=== PATIENT | male | born 1980 | race Caucasian/White ===

== ENCOUNTER 2017-08-14 23:50 | Emergency (ER) | payer OTHER, SELFPAY ==
[2017-08-15 00:01] VITALS: BP 129/79; PULSE 82; RESP 18; TEMP 36.7; O2SAT 96; BMI 31.7
--- NOTE | 2017-08-15 00:03 | ED_ITS ---
HPI - Extremity Injury (Upper) General Chief Complaint: Extremity Injury, Upper Stated Complaint: RGHT THUMB INJURY Time Seen by Provider: 08/15/17 00:02 Source: patient Mode of arrival: ambulatory Limitations: no limitations History of Present Illness HPI narrative: 36-year-old male here for evaluation of a right thumb injury. He states that yesterday he bent his thumb back and felt and heard multiple pops. He states that he has had swelling and pain since then. No prior injuries to his thumb. Has not tried anything for it. Related Data Home Medications Medication Instructions Recorded Confirmed oxycodone-acetaminophen 08/15/17 Previous Rx's Medication Instructions Recorded docusate sodium 250 mg PO QDAY #10 cap 12/28/16 ondansetron [Zofran ODT] 4 mg SUBLINGUAL Q6HP PRN #10 odt 12/28/16 oxycodone 0 mg PO Q4HP PRN #20 tab 12/28/16 Allergies Allergy/AdvReac Type Severity Reaction Status Date / Time No Known Drug Allergies Allergy Verified 08/15/17 00:15 Review of Systems Constitutional Denies chills, Denies fever(s), Denies lethargy and Denies weakness Musculoskeletal Comments: Pain to the right thumb with limited mobility secondary to the pain. Integumentary/Breasts Comments: Bruising the skin on the back of his right thumb Neurologic Denies weakness Comments: No neurologic changes to the right thumb REPLACED BY [facility] Surgical History History of back surgery (Acute) Exam Initial Vital Signs Initial Vital Signs: Vital Signs Temperature 98.1 F 08/15/17 00:01 Pulse Rate 82 08/15/17 00:01 Respiratory Rate 18 08/15/17 00:01 Blood Pressure 129/79 H 08/15/17 00:01 Pulse Oximetry 96 08/15/17 00:01 Cardio Pulses: radial pulses present Other: Capillary refill less than 2 sec Skin Other: Some discoloration of the skin on the dorsal aspect of the thumb over the metacarpophalangeal joint. Neuro Other: Sensation intact to light touch right thumb Extrem Other: Patient with tenderness to palpation over the right thumb at the MCP joint. Does have mobility at the IP joint but does limited by pain. No gross deformity. Course Orders Ordered: ED Orders 08/15/17 00:10 XR hand RT min 3V Stat Vital Signs - 8 hr 08/15/17 00:01 Temperature 98.1 F Pulse Rate 82 Respiratory Rate 18 Blood Pressure 129/79 H Pulse Oximetry 96 MDM - Extremity Injury (Upper) Imaging Data Right hand x-ray: Attestation: I personally reviewed and interpreted this imaging study as follows: My impression: No fractures, no dislocations MDM Narrative Medical decision making narrative: Patient is neurovascularly intact. My read of the x-ray shows no signs of fractures. Did place the patient denies if removable thumb spica splint for comfort. He was instructed that if in a couple days he is still having pain he needs to return to his primary doctor for a re-evaluation and possible more x-rays or consult to see Orthopedics for more extensive soft tissue injury. He has pain medication at home. He was given return precautions. He expressed understanding and agreement with plan Discharge Plan Departure Patient Disposition: Home, Self-Care Clinical Impression: Injury of right thumb Discharge Date/Time: 08/15/17 00:45 Interventions: ED Discharge Assessment Last Done: 08/15/17 00:45 Instructions: How To Perform RICE (Rest, Ice, Compress, Elevate), DI for Hand Injury Activity Restrictions/Additional Instructions: Wear the splint on a daily basis for the next week. You can remove it to take a shower however I recommend that you where it otherwise. After that you can remove the splint and move your thumb as tolerated. If pain persists you do need to follow-up with your primary doctor for further evaluation. You can take her home pain medication as directed for any discomfort. Ice here hand likely discussed. Prescriptions: No Action oxycodone 5 MG tablet PO Q4HP PRNQty: 20 RF: 0 docusate sodium 250 MG capsule 250 mg PO QDAY Qty: 10 RF: 0 ondansetron [Zofran ODT] 4 MG tablet,disintegrating 4 mg Sublingual Q6HP PRNQty: 10 RF: 0 oxycodone-acetaminophen 10-325 mg tablet RF: 0
--- NOTE | 2017-08-15 00:10 | DI.RAD.S_ITS ---
PROCEDURE: XR HAND RT MIN 3V INDICATIONS: right thumb injury TECHNIQUE: 3 views of the hand(s) acquired. COMPARISON: None. FINDINGS: Bones: No fractures or dislocations. Carpal bones are normally aligned. No suspicious bony lesions. Soft tissues: No suspicious soft tissue calcifications. IMPRESSION: No acute fractures or dislocations. Dictated by: Macario Cifuentes M.D. on 08/15/2017 at 9:06 Approved by: Macario Cifuentes M.D. on 08/15/2017 at 9:07
== END 2017-08-15 00:45 | disposition home or self-care (01) ==
PROVIDERS: Emergency Provider Emergency Medicine
DX: S69.91XA Unspecified injury of right wrist, hand and finger(s), initial encounter (principal)
CPT/HCPCS: 29280; 73130; 99283

== ENCOUNTER 2017-09-12 21:31 | Emergency (ER) | payer OTHER, SELFPAY ==
[2017-09-12 21:36] VITALS: BP 135/89; PULSE 73; RESP 20; TEMP 37.2; O2SAT 99
--- NOTE | 2017-09-12 21:39 | DI.RAD.S_ITS ---
PROCEDURE: XR FOOT RT MIN 3V INDICATIONS: 36 year-old with puncture wound. TECHNIQUE: 3 views of the foot were acquired. COMPARISON: None. FINDINGS: Bones: No fractures or dislocations. No suspicious bony lesions. Soft tissues: No tibiotalar joint effusion. Achilles tendon appears normal. No opaque foreign body. IMPRESSION: No opaque foreign body. Dictated by: Messi Hollis M.D. on 09/12/2017 at 22:09 Approved by: Messi Hollis M.D. on 09/12/2017 at 22:10
[2017-09-12] MEDS: levoFLOXacin 500 MG TABLET PO (23:17)
[2017-09-12 23:34] VITALS: BP 129/84; PULSE 65; RESP 16; TEMP 36.3; O2SAT 100
--- NOTE | 2017-09-13 04:14 | ED_ITS ---
HPI - Extremity Injury (Lower) General Chief Complaint: Extremity Injury, Lower Stated Complaint: BAMBOO SHOOT WENT THREW RT FOOT Time Seen by Provider: 09/12/17 22:00 Source: patient and family Mode of arrival: ambulatory Limitations: no limitations History of Present Illness HPI Narrative: Patient presents to the emergency department with a chief complaint of a puncture wound on the bottom of his foot after stepping on a sharp and bamboo shoe which went through his shoe and then a sock before puncturing the bottom of his foot. He bled minimally and they cleaned on scene prior to his presenting to the emergency department. He had no active bleeding and tetanus is up-to-date. He states that the piece a bamboo was fully intact and the likelihood foreign bodies essentially 0 MD complaint: foot injury Onset (ago): hour(s) Type of Injury: puncture wound Place: home Severity: mild Relieving factors: nothing Exacerbating factors: weight bearing and movement Context: direct blow Other symptoms: none Related Data Home Medications Medication Instructions Recorded Confirmed oxycodone-acetaminophen 08/15/17 Previous Rx's Medication Instructions Recorded docusate sodium 250 mg PO QDAY #10 cap 12/28/16 ondansetron [Zofran ODT] 4 mg SUBLINGUAL Q6HP PRN #10 odt 12/28/16 oxycodone 0 mg PO Q4HP PRN #20 tab 12/28/16 ciprofloxacin HCl [Cipro] 500 mg PO BID 7 Days #14 tab 09/12/17 Allergies Allergy/AdvReac Type Severity Reaction Status Date / Time No Known Drug Allergies Allergy Verified 08/15/17 00:15 Review of Systems Review of Systems All systems reviewed & are unremarkable except as noted in HPI and below Constitutional Denies chills, Denies fever(s), Denies lethargy and Denies weakness Eyes Denies change in vision, Denies eye discharge, Denies irritation and Denies loss of vision ENT Ears, Nose, Mouth, and Throat: Denies change in voice, Denies neck pain and Denies sore throat Cardiovascular Denies chest pain, Denies irregular heart rhythm, Denies lightheadedness, Denies palpitations, Denies dyspnea, Denies dyspnea on exertion and Denies orthopnea Respiratory Denies cough, Denies dyspnea, Denies dyspnea on exertion and Denies wheezing Gastrointestinal Gastrointestinal: Denies abdominal pain, Denies change in bowel habits, Denies diarrhea, Denies nausea and Denies vomiting Genitourinary Denies hematuria, Denies flank pain, Denies urinary incontinence and Denies urinary urgency Musculoskeletal Reports as per HPI and Denies neck pain Integumentary/Breasts Denies pruritus, Denies erythema, Denies rash and Denies wounds Neurologic Denies confusion, Denies loss of vision and Denies weakness Psychiatric Denies anxiety, Denies confusion, Denies depression, Denies homicidal ideation and Denies suicidal ideation Endocrine Denies palpitations Hematologic/Lymphatic Denies easy bruising Allergic/Immunologic Denies wheezing Exam Initial Vital Signs Initial Vital Signs: Vital Signs Temperature 98.9 F 09/12/17 21:36 Pulse Rate 73 09/12/17 21:36 Respiratory Rate 20 09/12/17 21:36 Blood Pressure 135/89 H 09/12/17 21:36 Pulse Oximetry 99 09/12/17 21:36 Const General: cooperative, well developed and in distress Nutritional Appearance: well nourished Orientation: alert, awake, oriented x3 and not confused [facility] Head: normocephalic and atraumatic Ears: external ears normal and TM's normal bilaterally Nose: external nose normal and No nasal discharge Face and sinus: sinuses nontender, face symmetric, no sinus tenderness and No dry mucous membranes Mouth: oral mucosae normal and moist mucous membranes Teeth and gingiva: dentition normal Throat: tonsils normal and uvula midline Neck Neck: normal visual inspection, trachea midline, No lymphadenopathy, No midline deformity and No JVD Lymphatic: No lymphedema Resp Effort & Inspection: normal respiratory effort, able to speak in complete sentences, no respiratory distress and no use of accessory muscles Auscultation: clear to auscultation bilaterally, no rales, no rhonchi and no wheezes Cardio Rate: regular rate Rhythm: regular rhythm Heart Sounds: no click, no gallops, no murmurs and no rubs Pulses: normal peripheral pulses Back/Spine/Pelvis Back: No CVA tenderness Cervical Spine: cervical ROM normal and No pain with cervical ROM Thoracic/Lumbar Spine: thoracic and lumbar spine normal to inspection Skin Trauma: puncture (Bottom of right foot) Neuro General: alert, oriented x3, gait normal and no focal motor deficits Speech: speech normal Extrem Right lower extremity: foot (0.5 cm puncture plantar surface of right foot. X- ray shows no foreign body. Palpation demonstrates no foreign body sensation. No active bleeding. Scrubbed with chlorhexidine) Course Orders Ordered: ED Orders 09/12/17 21:39 XR foot RT min 3V Stat Discontinued Medications Levofloxacin (Levaquin) 500 mg PO NOW ONE Stop: 09/12/17 22:59 Last Admin: 09/12/17 23:17 Dose: 500 mg Vital Signs - 8 hr 09/12/17 21:36 09/12/17 23:34 Temperature 98.9 F 97.4 F L Pulse Rate 73 65 Respiratory Rate 20 16 Blood Pressure 135/89 H Blood Pressure [Left Arm] 129/84 H Pulse Oximetry 99 100 MDM - Extremity Injury (Lower) Imaging Data X-ray foot: Attestation: I personally reviewed and interpreted this imaging study as follows: My impression: No acute process that half MDM Narrative Medical decision making narrative: Wound clean and scrubbed with chlorhexidine. No repair needed. Extensive discussion regarding soaks with Epsom salts, and that even given cleaning, and use of antibiotics that this puncture wound runs the chance of infection and to watch for increased swelling, redness, pain or discharge Discharge Plan Departure Patient Disposition: Home, Self-Care Clinical Impression: Puncture wound of foot Discharge Date/Time: 09/12/17 23:42 Interventions: ED Discharge Assessment Last Done: 09/12/17 23:41 Instructions: DI for Puncture Wound Activity Restrictions/Additional Instructions: *You have been diagnosed with [ puncture wound left foot ] *What to do: *Take medications as directed *Follow up with your primary care provider in 2-3 days *Return to ER if you should have any new, worsening or concerning symptoms such as increasing pain, redness, swelling or drainage Prescriptions: New ciprofloxacin HCl [Cipro] 500 mg tablet 500 mg PO BID 7 Days Qty: 14 RF: 0 No Action oxycodone 5 MG tablet PO Q4HP PRNQty: 20 RF: 0 docusate sodium 250 MG capsule 250 mg PO QDAY Qty: 10 RF: 0 ondansetron [Zofran ODT] 4 MG tablet,disintegrating 4 mg Sublingual Q6HP PRNQty: 10 RF: 0 oxycodone-acetaminophen 10-325 mg tablet RF: 0
== END 2017-09-12 23:42 | disposition home or self-care (01) ==
PROVIDERS: Emergency Provider Emergency Medicine
DX: S91.331A Puncture wound without foreign body, right foot, initial encounter (principal); W26.8XXA Contact with other sharp object(s), not elsewhere classified, initial encounter
CPT/HCPCS: 73630; 99282; 99283

== ENCOUNTER → 2017-10-20 14:09 | Outpatient (CLI) | payer OTHER, SELFPAY ==
--- NOTE | 2017-10-20 | DI.RAD.S_ITS ---
PROCEDURE: XR LUMBAR SPINE 2-3V INDICATIONS: S/P LUMBAR FUSION TECHNIQUE: 3 views of the lumbar spine were acquired. COMPARISON: Located Within [facility], CT, LUMBAR OR SACRAL SPINE WO CONT, 01/30/2016, 0:58. FINDINGS: Bones: 5 [id number] vertebrae are present. Postoperative changes are now evident at the L5-S1 level, posterior fixation with trans-peduncular screws and vertical connecting rods L5-S1. Surgical clip within the posterior disc space and anterior fixation and clips also present at L5-S1. No vertebral body compression fractures. No suspicious bony lesions. Soft tissues: Overlying bowel gas pattern is normal. No suspicious soft tissue calcifications. IMPRESSION: 1. No acute bony abnormality. 2. Grade 1 anterolisthesis L5 on S1 appears unchanged, anterior and posterior fixation devices now present. Dictated by: Naresh Ordoñez M.D. on 10/20/2017 at 14:54 Approved by: Naresh Ordoñez M.D. on 10/20/2017 at 14:58
== END ==
PROVIDERS: Visit Provider Physician Assistant Surgical
DX: M43.16 Spondylolisthesis, lumbar region (principal); Z98.1 Arthrodesis status
CPT/HCPCS: 72100

== ENCOUNTER → 2018-03-12 12:17 | Outpatient (CLI) | payer OTHER, SELFPAY | PROVIDERS: Visit Provider Neurological Surgery | DX: M54.9 Dorsalgia, unspecified (principal); Z98.1 Arthrodesis status; M43.16 Spondylolisthesis, lumbar region; Z01.812 Encounter for preprocedural laboratory examination | CPT/HCPCS: 36415; 80323 ==

== ENCOUNTER → 2018-04-07 06:55 | Outpatient (CLI) | payer OTHER, SELFPAY ==
--- NOTE | 2018-04-07 | DI.MRI.S_ITS ---
PROCEDURE: MR CERVICAL SPINE WO CON INDICATIONS: MYELOPATHY TECHNIQUE: Noncontrast sagittal T1 spin echo and T2 fast spin echo, sagittal STIR, foraminal oblique sagittal T2 fast spin echo, and axial gradient echo or T2 fast spin echo through the cervical spine. COMPARISON: None. FINDINGS: Image quality: Excellent. Alignment and Curvature: There is normal bony alignment. Bone Marrow: Marrow demonstrates normal overall signal. Mild metal artifact from an anterior fusion plate C6-7. No sign of device loosening or disruption. Spinal Cord: Visualized spinal cord has normal size and signal. No cerebellar tonsillar herniation. Paraspinous Soft Tissues: No paravertebral masses. Prevertebral soft tissues are normal in thickness. C2-C3: Normal appearance. C3-C4: Normal appearance. C4-C5: Normal appearance. C5-C6: Mild to moderate degenerative disc disease above the level of C6-7 fusion, with only a slight posterior disc bulge. No nerve root impingement, no significant spinal or foraminal stenosis is found.. C6-C7: Normal appearance. C7-T1: Normal appearance. IMPRESSION: Mild degenerative to moderate degenerative disc disease with a slight posterior disc bulge at C5-6, above the level of previously documented C6-7 anterior fusion plate. No intrinsic lesion within the cervical cord is present. There is no suspicion for nerve root impingement. Dictated by: Alli Langley M.D. on 04/07/2018 at 9:01 Approved by: Alli Langley M.D. on 04/07/2018 at 9:02
--- NOTE | 2018-04-07 | DI.MRI.S_ITS ---
PROCEDURE: MR THORACIC SPINE WO CON INDICATIONS: MYELOPATHY TECHNIQUE: Noncontrast sagittal T1 spine echo and T2 fast spin echo, sagittal STIR, axial T1 and T2 fast spin echo through the thoracic spine. COMPARISON: [facility], , CERVICAL SPINE 2 OR 3 VIEWS, 12/18/2010, 13:29. FINDINGS: Image quality: Excellent. Alignment and Curvature: There is normal bony alignment. Bone Marrow: Marrow is of normal overall signal. No acute vertebral body compression fractures. There is a small degree of metal artifact at C6-C7 from an anterior fusion plate and transverse anterior vertebral body screws. Spinal Cord: Visualized spinal cord is normal in size and signal. Paraspinous Soft Tissues: No paravertebral masses. Miscellaneous: On axial images, central canal and foramina appear widely patent at all scanned levels. IMPRESSION: Anterior fusion plate C6-7. Normal appearing thoracic spine and intervertebral disc material. No sign of intrinsic lesion involving the visualized cervical cord or thoracic cord and visualized conus medullaris. Source of current symptoms is not seen. Dictated by: Alli Langley M.D. on 04/07/2018 at 8:58 Approved by: Alli Langley M.D. on 04/07/2018 at 9:01
== END ==
PROVIDERS: PCP Preventive Medicine Occupational Medicine; Visit Provider Neurological Surgery
DX: M50.022 Cervical disc disorder at C5-C6 level with myelopathy (principal); Z98.1 Arthrodesis status
CPT/HCPCS: 72141; 72146

== ENCOUNTER 2018-10-27 22:37 | Emergency (ER) | payer OTHER, SELFPAY ==
[2018-10-27 22:46] VITALS: BP 172/99; PULSE 79; RESP 20; TEMP 36.3; O2SAT 98; BMI 32.1
--- NOTE | 2018-10-27 23:01 | DI.CT.S_ITS ---
PROCEDURE: CT CERVICAL SPINE WO CON INDICATIONS: severe neck pain,history of non traumatic c6 and c7 fusion TECHNIQUE: Noncontrast 3 mm thick sections acquired from the skull base to the T4 level. Sagittal and coronal reformats were then constructed. For radiation dose reduction, the following was used: automated exposure control, adjustment of mA and/or kV according to patient size. COMPARISON: [facility], CERVICAL SPINE 2 OR 3 VIEWS, 12/18/2010, 13:29. FINDINGS: Image quality: Excellent. Bones: C6-C7 ACDF. No fractures or dislocations. Visualized superior ribs are intact. Spine degenerative disc disease and facet arthropathy. Soft tissues: Prevertebral soft tissues are normal in thickness. No paravertebral hematomas. No apical pneumothoraces. IMPRESSION: No fracture. No acute osseous lesion. If symptoms and/or clinical suspicion for pathology persists, evaluation with MRI may be helpful for further assessment. Dictated by: Sophy Reid MD, PhD on 10/28/2018 at 8:25 Approved by: Sophy Reid MD, PhD on 10/28/2018 at 8:28
[2018-10-28 00:32] VITALS: BP 159/114; PULSE 76; RESP 16; O2SAT 96
--- NOTE | 2018-10-28 02:07 | ED_ITS ---
HPI - Neck Pain/Injury General Chief Complaint: Neck Pain/Injury Stated Complaint: neck pain,, headache Time Seen by Provider: 10/28/18 00:27 Source: patient and family Mode of arrival: ambulatory Limitations: no limitations History of Present Illness HPI Narrative: Patient presents the emergency department complaining of neck pain, mainly in the superior aspect of the neck, to the left of the spine. Patient states this has been going on for several days, and did not have any particular trigger. He denies any new numbness or tingling in his arms or legs, though he does have chronic sensory deficits in his bilateral upper extremities after a C6-7 surgery. Patient denies any weakness in his extremities. He states it feels like when he had to have this C6-7 surgery. No recent injuries. 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 No other complaints at this time. No fevers. No chest pain or shortness of breath. No abdominal pain. No nausea or vomiting. No dysuria. No bowel or bladder incontinence. Related Data Home Medications Medication Instructions Recorded Confirmed oxycodone-acetaminophen 08/15/17 Previous Rx's Medication Instructions Recorded docusate sodium 250 mg PO QDAY #10 cap 12/28/16 ondansetron [Zofran ODT] 4 mg SUBLINGUAL Q6HP PRN #10 odt 12/28/16 oxycodone 0 mg PO Q4HP PRN #20 tab 12/28/16 Allergies Allergy/AdvReac Type Severity Reaction Status Date / Time No Known Drug Allergies Allergy Verified 08/15/17 00:15 Review of Systems Constitutional Denies chills, Denies fever(s), Denies lethargy and Denies weakness Eyes Denies change in vision, Denies eye discharge, Denies irritation and Denies loss of vision ENT Ears, Nose, Mouth, and Throat: Denies change in voice, Reports neck pain and Denies sore throat Cardiovascular Denies chest pain, Denies irregular heart rhythm, Denies lightheadedness, Denies palpitations, Denies dyspnea, Denies dyspnea on exertion and Denies orthopnea Respiratory Denies cough, Denies dyspnea, Denies dyspnea on exertion and Denies wheezing Gastrointestinal Gastrointestinal: Denies abdominal pain, Denies change in bowel habits, Denies diarrhea, Denies nausea and Denies vomiting Genitourinary Denies hematuria, Denies flank pain, Denies urinary incontinence and Denies urinary urgency Musculoskeletal Reports neck pain Integumentary/Breasts Denies pruritus, Denies erythema, Denies rash and Denies wounds Neurologic Denies confusion, Denies loss of vision and Denies weakness Psychiatric Denies anxiety, Denies confusion, Denies depression, Denies homicidal ideation and Denies suicidal ideation Endocrine Denies palpitations Hematologic/Lymphatic Denies easy bruising Allergic/Immunologic Denies wheezing [facility] Medical History Palpitations (Acute) Laceration of nose (Acute) Left maxillary sinusitis (Acute) Acute exacerbation of chronic low back pain (Acute) Low back pain (Acute) Supraumbilical hernia (Acute) Umbilical hernia (Acute) Abdominal pain (Acute) Degenerative joint disease of cervical and lumbar spine (Acute) Surgical History History of back surgery (Acute) Social History Smoking Status: Current some day smoker Social History Smoking Status: Current some day smoker Exam Initial Vital Signs Initial Vital Signs: Vital Signs Temperature 97.4 F L 10/27/18 22:46 Pulse Rate 79 10/27/18 22:46 Respiratory Rate 20 10/27/18 22:46 Blood Pressure 172/99 H 10/27/18 22:46 Pulse Oximetry 98 10/27/18 22:46 Const General: cooperative and well developed Nutritional Appearance: well nourished Orientation: alert, awake, oriented x3 and not confused [facility] [place] Head: normocephalic and atraumatic Ears: external ears normal and TM's normal bilaterally Nose: external nose normal and No nasal discharge Face and sinus: sinuses nontender, face symmetric, no sinus tenderness and No dry mucous membranes Mouth: oral mucosae normal and moist mucous membranes Teeth and gingiva: dentition normal Throat: tonsils normal and uvula midline Eyes General: appearance normal, both eyes and all related structures Eyelids: eyelids normal Conjunctivae: conjunctivae normal Sclera: sclerae normal Pupils: PERRL EOM: EOM intact bilaterally Neck Neck: normal visual inspection, trachea midline, No lymphadenopathy, No midline deformity and No JVD Lymphatic: No lymphedema Other: Patient has decreased range of motion of his neck, secondary to pain. There is no tenderness over the spine itself; no step-off. There is moderate tenderness over the left superior cervical paraspinal musculature, immediately adjacent to the spine. The Chest Chest: normal inspection of the chest Resp Effort & Inspection: normal respiratory effort, able to speak in complete sentences, no respiratory distress and no use of accessory muscles Auscultation: clear to auscultation bilaterally, no rales, no rhonchi and no wheezes Cardio Rate: regular rate Rhythm: regular rhythm Heart Sounds: no click, no gallops, no murmurs and no rubs Pulses: normal peripheral pulses GI Inspection: non-distended Palpation: soft, no hepatosplenomegaly, No guarding, No pulsatile mass and No tender Auscultation: normal bowel sounds Back/Spine/Pelvis Back: No CVA tenderness Cervical Spine: cervical ROM normal and No pain with cervical ROM Thoracic/Lumbar Spine: thoracic and lumbar spine normal to inspection Skin General: no rashes or lesions noted, No jaundice and No petechiae Neuro General: alert, oriented x3, gait normal and no focal motor deficits Speech: speech normal Extrem General: full ROM, no clubbing, cyanosis or edema, no pedal edema and no calf tenderness Psych Appearance: well kempt Mental Status: mental status grossly normal Attitude: cooperative Thought Content: normal and suicidality Judgment: judgment good Course Course Narrative: Patient declined symptomatic treatment in the emergency depart ment. CT of his neck reveals degenerative disease at C3 and C4, but no other significant abnormalities of an acute or concerning nature. I discussed the findings at length, with the patient and his , as well as the need for him to follow up with his spinal surgeon and discuss whether a repeat MRI should be done and what patient's options are. We have discussed home management of symptoms, as well as the usual indications for return. Orders Ordered: ED Orders 10/27/18 23:01 CT cervical spine wo con Stat Vital Signs - 8 hr 10/27/18 22:46 10/28/18 00:32 Temperature 97.4 F L Pulse Rate 79 76 Respiratory Rate 20 16 Blood Pressure 172/99 H Blood Pressure [Right Arm] 159/114 H Pulse Oximetry 98 96 MDM - Neck Pain/Injury Medical Records Attestation: I reviewed the patient's medical records. Discharge Plan Departure Patient Disposition: Home Clinical Impression: Degenerative joint disease of cervical and lumbar spine Discharge Date/Time: 10/28/18 02:09 Interventions: ED Discharge Assessment Last Done: 10/28/18 02:09 Instructions: DI for Neck Pain Activity Restrictions/Additional Instructions: Your CT scan shows degenerative disease at the C3-C4 level. This is very likely the cause of your pain. However, given your history of spinal issues, you should call your spine specialists office 1st thing this morning to schedule a follow-up appointment and discuss MRI. You may take your home pain medications, as needed. If you began to develop worsening numbness or if you develop weakness in any of your arms or legs, you should be re-evaluated immediately. Prescriptions: No Action oxycodone 5 MG tablet PO Q4HP PRNQty: 20 RF: 0 docusate sodium 250 MG capsule 250 mg PO QDAY Qty: 10 RF: 0 ondansetron [Zofran ODT] 4 MG tablet,disintegrating 4 mg Sublingual Q6HP PRNQty: 10 RF: 0 oxycodone-acetaminophen 10-325 mg tablet RF: 0 Referrals: Mirlande Charles MD [Primary Care Provider] -
[2018-10-28 02:09] VITALS: BP 168/113; PULSE 68; RESP 22; TEMP 36.3; O2SAT 98
== END 2018-10-28 02:09 | disposition home or self-care (01) ==
PROVIDERS: Emergency Provider Emergency Medicine; PCP Preventive Medicine Occupational Medicine
DX: M50.31 Other cervical disc degeneration, high cervical region (principal)
CPT/HCPCS: 72125; 99282; 99283

== ENCOUNTER 2018-12-14 13:37 | Emergency (ER) | payer OTHER, SELFPAY ==
[2018-12-14 13:57] VITALS: BP 145/95; PULSE 83; RESP 14; TEMP 36.6; O2SAT 99
[2018-12-14 14:05] VITALS: BP 157/87; PULSE 79; RESP 17; O2SAT 94
[2018-12-14 14:18] LABS: Add Manual Diff / Slide Review NO; Basophils Absolute Auto 100 /uL (0-100); Basophils Percent Auto 0.7 % (0-2); Eosinophils Absolute Auto 200 /uL (0-450); Eosinophils Percent Auto 1.8 % (2-4); Hematocrit 45.1 % (41-53); Hemoglobin 15.4 g/dL (13.5-17.5); Lymphocytes Absolute Auto 2800 /uL (1100-4500); Lymphocytes Percent Auto 24.4 % (25-40); Mean Corpuscular HGB Conc 34.1 % (30-36); Mean Corpuscular Hemoglobin 31.3 PG (26-34); Mean Corpuscular Volume 91.7 fL (80-100); Monocytes Absolute Auto 800 /uL (0-900); Neutrophils Absolute Auto 7600 /uL (1500-7000); Neutrophils Percent Auto 66.1 % (50-75); Platelet Count 271 X10^3/uL (150-400); Red Blood Cell Count 4.92 X10^6/uL (4.5-5.9); Red Cell Distribution Width 13.1 % (11.6-14.8); White Blood Cell Count 11.4 X10^3/uL (4.5-11.0)
[2018-12-14 14:27] LABS: Alanine Aminotransferase 46 IU/L (21-72); Albumin 4.6 g/dL (3.5-5.0); Albumin Globulin Ratio 1.4 (1.0-2.8); Alkaline Phosphatase 89 U/L (38-126); Aspartate Aminotransferase 32 IU/L (17-59); BUN Creatinine Ratio 16.3 (6-22); Bilirubin Total 0.4 mg/dL (0.2-1.3); Blood Urea Nitrogen 13 mg/dL (9-20); Calcium 9.7 mg/dL (8.4-10.2); Carbon Dioxide 29 mmol/L (22-32); Chloride 102 mmol/L (98-107); Creatine Kinase 92 U/L (55-170); Estimated Glomerular Filt Rate > 60.0 mL/min (>60); Globulin 3.2 g/dL (1.7-4.1); Glucose 116 mg/dL (70-100); HEMOLYSIS 31 (0-50); Sodium 138 mmol/L (137-145); Total Protein 7.8 g/dL (6.3-8.2)
[2018-12-14 14:39] LABS: Troponin I < 0.012 ng/mL (0.01-0.034)
--- NOTE | 2018-12-14 14:41 | ED_ITS ---
HPI - Chest Pain General Chief Complaint: Chest Pain Stated Complaint: chest pain,left arm numb,dizzy Time Seen by Provider: 12/14/18 15:00 Source: patient and family () Mode of arrival: Ambulatory Limitations: no limitations History of Present Illness HPI narrative: This is a 37-year-old male comes to the emergency department with complaint of left chest discomfort that has been constant for the last several days. Patient states that he has felt dizzy and sometimes short of breath. He also complains of his left shoulder and arm being numb intermittently. He initially states there is no pain but then states there is some pain in the left arm. Patient states he has been told his blood pressure is elevated but never started on medications, he has been told his cholesterol is elevated but does not take medication. He denies any history of diabetes. He does with pain management and takes oxycodone daily but denies any other medications regularly. He has had a C6 through 7 fusion as well as known CD4 degenerative joint disease and back surgery on his low back as well. Patient has also had hernia repair and shoulder surgery. He denies any fevers, no chills. He states he has had a cough with sometimes productive clear sputum. Denies any nausea or vomiting except for 2 days ago. Denies any issues with bowel movements or urination. Denies any swelling in his extremities. He denies any exacerbating or alleviating factors. Patient does have a history significant for his mom dying cardiac issue the age of 56 that her heart exploded, by description may have been an PA. Father of leukemia when patient was 2 months old. He has siblings and is unaware of any medical problems. Related Data Home Medications Medication Instructions Recorded Confirmed oxycodone 10 mg PO Q4-6H PRN MDD 3 tabs 12/14/18 Allergies Allergy/AdvReac Type Severity Reaction Status Date / Time No Known Drug Allergies Allergy Verified 08/15/17 00:15 Review of Systems Review of Systems ROS Unobtainable: All systems reviewed & are unremarkable except as noted in HPI and below Constitutional Constitutional: Denies chills, Reports fatigue, Denies fever(s), Denies lethargy and Denies weakness ENT Ears, Nose, Mouth, and Throat: Reports neck pain (chronic) Cardiovascular Cardiovascular: Reports chest pain, Denies diaphoresis, Denies syncope, Denies rapid heart rate, Denies edema, Denies irregular heart rhythm, Denies lightheadedness, Denies palpitations, Reports dyspnea and Denies dyspnea on exertion Respiratory Respiratory: Denies change in phlegm color, Denies chest congestion, Reports cough, Reports dyspnea, Denies dyspnea on exertion, Denies stridor and Denies wheezing Gastrointestinal Gastrointestinal: Denies abdominal pain, Denies melena, Denies hematochezia, Denies change in bowel habits, Denies constipation, Denies diarrhea, Denies nausea and Denies vomiting Genitourinary Genitourinary: Denies hematuria, Denies dysuria, Denies flank pain, Denies urinary frequency, Denies urinary incontinence and Denies urinary urgency Musculoskeletal Musculoskeletal: Reports back pain (chronic), Denies limited range of motion, Reports neck pain (chronic), Reports numbness (left arm, intermittent. Not always related to chest pain symptoms) and Denies tingling Integumentary/Breasts Skin/Breast: Denies rash Neurologic Neurologic: Denies syncope, Denies focal weakness, Reports numbness (left arm, intermittent. Not always related to chest pain symptoms), Denies tingling and Denies weakness Endocrine Endocrine: Reports fatigue and Denies palpitations Allergic/Immunologic Allergic/Immunologic: Denies wheezing [facility] Medical History Abdominal pain (Acute) Acute exacerbation of chronic low back pain (Acute) Degenerative joint disease of cervical and lumbar spine (Inactive) Laceration of nose (Acute) Left maxillary sinusitis (Acute) Low back pain (Acute) Palpitations (Acute) Supraumbilical hernia (Acute) Umbilical hernia (Acute) Surgical History History of back surgery (Acute) Social History Smoking Status: Current some day smoker Family History (Updated 12/14/18 @ 15:24 by Mikayla Boss DO) Mother No problems noted. Father Leukemia Social History (Updated 12/14/18 @ 15:24 by Mikayla Boss DO) Smoking Status: Current some day smoker substance use type: does not use Exam Narrative Exam Narrative: GENERAL: Alert and oriented x three, moderately obese male in mild distress. HEENT: Head normocephalic, atraumatic, EOMI, pupils reactive, face symmetric, moist mucous membranes NECK: Supple, full range of motion, patient has mild cervical tenderness on exam. CARDIOVASCULAR: Regular rate and rhythm without murmurs, rubs or gallops. Nonreproducible chest pain RESPIRATORY: Breath sounds equal bilaterally, no wheezes rales or rhonchi. ABDOMEN: Soft, nontender. Normoactive bowel sounds all 4 quadrants. No guarding or rebound, rigidity, no mass : No CVA tenderness EXTREMITIES: Normal range of motion, no clubbing or edema. Patient does have some hypermobility of his left shoulder which he demonstrates multiple times. He has equal muscle strength in bilateral upper extremities. Fulfillment Representative is equal bilaterally. 2+ pulses bilaterally. Reflexes are equal in bilateral upper extremities. Neurovascularly intact NEUROLOGICAL: Cranial nerves II through XII grossly intact. Moving all extrem ities SKIN: Warm, dry, no petechiae, no rashes or lesions. Initial Vital Signs Initial Vital Signs: Vital Signs Temperature 97.8 F 12/14/18 13:57 Pulse Rate 83 12/14/18 13:57 Respiratory Rate 14 12/14/18 13:57 Blood Pressure 145/95 H 12/14/18 13:57 Pulse Oximetry 99 12/14/18 13:57 Scores HEART Score Heart Score history: Moderately Suspicious Heart Score EKG: Normal Heart Score Age: < 45 years old Heart Score risk factors: 1-2 risk factors Heart Score troponin: < or = to normal limit Heart Score Total: 2 Course Orders Ordered: ED Orders 12/14/18 13:08 EKG-12 Lead Stat 12/14/18 14:00 Complete Blood Count AUTO DIFF Stat Comprehensive Metabolic Panel Stat Lipase Stat Troponin & CK Cardiac Panel Stat 12/14/18 14:41 Chest [XR chest 1V] Stat Vital Signs Vital signs: Vital Signs - 8 hr 12/14/18 13:57 12/14/18 14:05 12/14/18 15:10 Temperature 97.8 F Pulse Rate 83 79 68 Respiratory Rate 14 17 18 Blood Pressure 145/95 H Blood Pressure [Left Arm] 157/87 H 149/88 H Pulse Oximetry 99 94 96 MDM - Chest Pain Lab Data Attestation: I reviewed the patient's lab results. Result diagrams: 12/14/18 14:00 12/14/18 14:00 Labs: Lab Results 12/14/18 12/14/18 12/14/18 Range/Units 14:00 14:00 14:00 WBC 11.4 H (4.5-11.0) X10^3/uL RBC 4.92 (4.5-5.9) X10^6/uL Hgb 15.4 (13.5-17.5) g/dL Hct 45.1 (41-53) % MCV 91.7 (80-100) fL MCH 31.3 (26-34) PG MCHC 34.1 (30-36) % RDW 13.1 (11.6-14.8) % Plt Count 271 (150-400) X10^3/uL Neut % (Auto) 66.1 (50-75) % Lymph % (Auto) 24.4 L (25-40) % [place] % (Auto) 7.0 (3-14) % Eos % (Auto) 1.8 L (2-4) % Baso % (Auto) 0.7 (0-2) % Neut # (Auto) 7600 H (1499-5478) /uL Lymph # (Auto) 2800 (8156-8841) /uL [place] # (Auto) 800 (0-900) /uL Eos # (Auto) 200 (0-450) /uL Baso # (Auto) 100 (0-100) /uL Sodium 138 (137-145) mmol/L Potassium 4.0 (3.4-5.1) mmol/L Chloride 102 (98-107) mmol/L Carbon Dioxide 29 (22-32) mmol/L BUN 13 (9-20) mg/dL Creatinine 0.80 (0.66-1.25) mg/dL Estimated GFR > 60.0 (>60) mL/min BUN/Creatinine Ratio 16.3 (6-22) Glucose 116 H (70-100) mg/dL Calcium 9.7 (8.4-10.2) mg/dL Total Bilirubin 0.4 (0.2-1.3) mg/dL AST 32 (17-59) IU/L ALT 46 (21-72) IU/L Alkaline Phosphatase 89 (38-126) U/L Total Creatine Kinase 92 (55-170) U/L CK-MB (CK-2) TNP CK-MB (CK-2) Rel Index TNP Troponin I < 0.012 (0.01-0.034) ng/mL Total Protein 7.8 (6.3-8.2) g/dL Albumin 4.6 (3.5-5.0) g/dL Globulin 3.2 (1.7-4.1) g/dL Albumin/Globulin Ratio 1.4 (1.0-2.8) Lipase 59 (23-300) U/L Imaging Data Chest x-ray: Radiologist's impression: [address] [address] XRay Report Signed Patient: Alli Grewal MMR#: [id number] : 1980Acct:[id number] Age/Sex: 37 / MDate of Service: 12/14/18 Loc: ED Accession Number: [id number] Procedure: XR chest 1V Ordering Provider: Mikayla Boss D.O. PROCEDURE: XR CHEST 1V INDICATIONS: chest pain TECHNIQUE: One view of the chest was acquired. COMPARISON: [facility], , CHEST 2 VIEW, 02/26/2015, 19:05. FINDINGS: Surgical changes and devices: None. Lungs and pleura: Lungs are clear. No pleural effusions or pneumothorax. Mediastinum: Mediastinal contours appear normal. Heart size is normal. Bones and chest wall: No suspicious bony lesions. Overlying soft tissues appear unremarkable. IMPRESSION: No evidence acute pulmonary process. Dictated by: Jesse Stein M.D. on 12/14/2018 at 15:04 Approved by: Jesse Stein M.D. on 12/14/2018 at 15:04 ECG Data Attestation: I personally reviewed and interpreted this ECG as follows: Prior ECG tracings: available for review Interpretation: Sinus rhythm the rate 84 WA 152 QRS of 95 and QTC of 391. No ST changes appreciated. 04/16/17. [place] Narrative Medical decision making narrative: Patient comes in with complaint of chest pain and shortness of breath which has been greater than 12 hours with a negative EKG and troponin. He also is complaining of numbness in his left upper extremity but denies any weakness. He has history significant for cervical fusion and no degenerative disease just above his fusion. I suspect that the numbness in his arm is related to this. He does chronically have neck and low back pain and takes oxycodone regularly for it through pain management. Patient also is complaining of cough, chest x-ray does not show any pneumonia he does not been febrile or had any clear changes on exam that are suspicious for acute infection but I would suspect that some may be related to his tobacco use. He has family history of cardiac issues and states that he has been told he has hypertension and dyslipidemia but has never been told to take medication. Discussed that he should have follow-up and likely stress testing based on his family history. Discharge Plan Departure Patient Disposition: Home Clinical Impression: Atypical chest pain Discharge Date/Time: 12/14/18 15:42 Instructions: DI for Atypical Chest Pain Activity Restrictions/Additional Instructions: Follow up with primary care for recheck and discussion about stress testing. If you prefer you can contact our health resources coordinator for a primary care physician outside the [place] [phone] is the contact number. I would also discuss the decreased sensation with your orthopedic or spinal surgeon if you prefer referral is given here for local orthopedic surgery. I would recommend continuing your home medications as prescribed. Return to the emergency department for fevers got 100.4 F, passing out, new changes to her chest pain or shortness of breath, coughing up blood, persistent vomiting, black or bloody stools or other new or concerning symptoms. Prescriptions: No Action oxycodone 20 mg tablet 10 mg PO Q4-6H MDD 3 tabs PRN (Reason: pain) RF: 0 Referrals: Mirlande Charles MD [Primary Care Provider] - Sherri Ritter MD [Physician] -
[2018-12-14 15:10] VITALS: BP 149/88; PULSE 68; RESP 18; O2SAT 96
[2018-12-14 15:11] LABS: Lipase 59 U/L (23-300)
== END 2018-12-14 15:42 | disposition home or self-care (01) ==
PROVIDERS: Emergency Provider Emergency Medicine; PCP Preventive Medicine Occupational Medicine
DX: R07.89 Other chest pain (principal); R06.02 Shortness of breath; R42 Dizziness and giddiness
CPT/HCPCS: 36415; 71045; 80053; 82550; 83690; 84484; 85025; 93005; 93041; 99283; 99285

== ENCOUNTER → 2019-03-31 13:36 | Outpatient (CLI) | payer OTHER, SELFPAY ==
--- NOTE | 2019-03-31 | DI.RAD.S_ITS ---
PROCEDURE: FL SHOULDER INJECTION MR/CT LT INDICATIONS: LEFT SHOULDER PAIN TECHNIQUE: The indications, alternatives, benefits, risks, and complications of the procedure were explained to the patient. Written informed consent was obtained and placed in the chart. The shoulder was examined fluoroscopically and a site for needle placement chosen for entry into the glenohumeral joint from an anterior approach. The skin was prepped and draped in a sterile fashion, and 1% lidocaine infiltrated from skin down to joint capsule. A spinal needle was inserted into the glenohumeral joint, and a small amount of iodinated contrast media injected to confirm intra-articular placement of the needle tip. This was followed by approximately 12 mL dilute solution of a gadolinium containing MR contrast agent. The needle was removed and a dressing was applied. The patient was given postprocedural instructions and sent to the MR suite for MR imaging. FINDINGS: A single fluoroscopic spot image demonstrates intra-articular location of injected iodinated contrast. IMPRESSION: Successful fluoroscopically guided administration of dilute Gadolinium solution into the shoulder joint for MR arthrogram. Dictated by: Messi Hollis M.D. on 03/31/2019 at 14:56 Approved by: Messi Hollis M.D. on 03/31/2019 at 14:56
--- NOTE | 2019-03-31 14:05 | DI.MRI.S_ITS ---
PROCEDURE: MR SHOULDER LT W CON INDICATIONS: LEFT SHOULDER PAIN TECHNIQUE: After the administration of 12 mL of dilute intra-articular Gadolinium contrast, oblique coronal T1 and T2 spin echo with fat saturation, oblique sagittal T1 spin echo with and without fat saturation, oblique sagittal T2 fast spin echo with fat saturation, axial T1 spin echo with fat saturation through the shoulder. COMPARISON: [facility] [place], CR, XR SHOULDER 2+ VIEWS LEFT, 03/24/2019, 10:48. Former[facility], MR, UP EXT WITH, 01/15/2010, 14:26. Former[facility], RF, FL SHOULDER INJECTION MR/CT LT, 03/31/2019, 13:54. FINDINGS: Image quality: Excellent. Rotator cuff: There is low-grade partial thickness tear of the supraspinatus and infraspinatus tendons. The subscapularis tendon appears intact throughout. No rotator cuff muscle atrophy on sagittal images. Bones and bursae: No bone marrow contusions or fractures. Cystic changes noted in the posterior aspect of the humeral head. No acromioclavicular joint degeneration. The acromion demonstrates conventional anatomy, without an os acromiale. Capsule and soft tissues: There is fraying of the anterior superior labrum near the biceps anchor. The glenohumeral ligaments appear intact. The long head of the biceps tendon demonstrates normal location and morphology. The rotator interval appears normal, without fibrosis. The coracohumeral ligament is of normal thickness. No intra-articular bodies. IMPRESSION: 1. Low-grade partial thickness tear of the supraspinatus and infraspinatus tendons. 2. Fraying of the anterior superior labrum near the biceps anchor suspicious for tear. 3. Mild coma clavicular joint degeneration. 4. Cystic changes in the posterior aspect of the humeral head. Dictated by: Messi Hollis M.D. on 03/31/2019 at 14:58 Approved by: Messi Hollis M.D. on 03/31/2019 at 16:39
== END ==
PROVIDERS: Visit Provider Orthopaedic Surgery
DX: M25.512 Pain in left shoulder (principal); M75.112 Incomplete rotator cuff tear or rupture of left shoulder, not specified as traumatic
CPT/HCPCS: 23350; 73222; 77002

== ENCOUNTER 2019-06-10 06:32 | Emergency (ER) | payer OTHER, SELFPAY ==
[2019-06-10 06:40] VITALS: BP 181/102; PULSE 86; RESP 15; TEMP 36.2; O2SAT 94; BMI 32.1
--- NOTE | 2019-06-10 06:50 | DI.US.S_ITS ---
PROCEDURE: US SCROTUM INDICATIONS: right testicular pain, lump upper and lower TECHNIQUE: Real-time scanning was performed of the scrotum and testicles, with image documentation. Color and pulse Doppler interrogation was performed of both testicles. COMPARISON: None. FINDINGS: Right: Testicle is normal in size at 5.2 x 2.7 x 3 cm, and homogenous in echotexture. Right epididymis is slightly enlarged measures 2.1 cm in thickness and is heterogeneously in echotexture. Epididymal head cyst is seen measures 1.4 x 1.4 x 1.5 cm in size. Increased epididymal parenchymal vascularity is also noted. No hydrocele or varicoceles. Overlying scrotal skin is normal in thickness. Left: Testicle is normal in size at 5 x 2.7 x 3 cm, and homogeneous in echotexture. Epididymis is normal in overall size and morphology. No hydrocele or varicoceles. Overlying scrotal skin is normal in thickness. Doppler: Color and pulse Doppler demonstrate normal and symmetric arterial flow in both testicles. IMPRESSION: 1. Finding is consistent with right epididymitis. Right epididymal head cyst is also seen. 2. Normal appearing left epididymis and bilateral testes. No evidence of testicular torsion. Dictated by: Mac Mendez M.D. on 06/10/2019 at 8:10 Approved by: Mac Mendez M.D. on 06/10/2019 at 8:15
--- NOTE | 2019-06-10 06:51 | ED_ITS ---
HPI - Male Genitourinary General Chief complaint: Urogenital-Male Stated complaint: right testicle has lumps,swelling,painful Time Seen by Provider: 06/10/19 06:38 Source: patient Mode of arrival: Ambulatory Limitations: no limitations History of Present Illness HPI Narrative: This is a 38-year-old who comes in with complaint of right testicular pain he has states it feels swollen and he noted lumps in the upper a nd lower testicle on the right. He states the lump on the upper testicles been there a long time he noticed the lower 1 in the last day or so. He states the lumps have been tender for couple days. He states that sometimes his testicle is ?twisted? but states that he takes care of it at home. He has never had a torsion diagnosed that he is aware of. States pain does sometimes radiate up into the lower abdomen, he states it has been uncomfortable when he tries to empty his bladder. He has not had dysuria, urgency or frequency, no hematuria. He does not have fevers. No nausea or vomiting. He denies other issues. He defers any pain medication. He has had a vasectomy in the past. Patient has had back surgeries in the past but denies other medical issues. Related Data Home Medications Medication Instructions Recorded Confirmed oxycodone 10 mg PO Q4-6H PRN MDD 3 tabs 12/14/18 Allergies Allergy/AdvReac Type Severity Reaction Status Date / Time No Known Drug Allergies Allergy Verified 08/15/17 00:15 Review of Systems Review of Systems ROS Unobtainable: All systems reviewed & are unremarkable except as noted in HPI and below Patient History Family History (Updated 12/14/18 @ 15:24 by Mikayla Boss DO) Mother No problems noted. Father Leukemia Social History (Updated 12/14/18 @ 15:24 by Mikayla Boss DO) Smoking Status: Current every day smoker substance use type: does not use Smoking Status: Current every day smoker alcohol intake frequency: 0-2 drinks per day Substance Use Type: does not use Exam Narrative Exam Narrative: GENERAL: Alert and oriented x three, well-nourished male is in [id number] distress. HEENT: Head normocephalic, atraumatic, EOMI, pupils reactive, face symmetric, moist mucous membranes NECK: Supple, full range of motion CARDIOVASCULAR: Regular rate and rhythm without murmurs, rubs or gallops. RESPIRATORY: Breath sounds equal bilaterally, no wheezes rales or rhonchi. ABDOMEN: Soft, nontender. Normoactive bowel sounds all 4 quadrants. No guard ing or rebound, rigidity, no mass : No CVA tenderness. Male: normal external examination, no penile discharge or lesions, right testicle is tender, unable to palpate a mass or lump testicle does seem slightly swollen compared to the left, cremasteric reflex intact, no inguinal hernias noted. EXTREMITIES: Normal range of motion, no clubbing or edema. Neurovascularly intact NEUROLOGICAL: Cranial nerves II through XII grossly intact. Moving all extremities SKIN: Warm, dry, no petechiae, no rashes or lesions. Initial Vital Signs Initial Vital Signs: Vital Signs Temperature 97.1 F L 06/10/19 06:40 Pulse Rate 86 06/10/19 06:40 Respiratory Rate 15 06/10/19 06:40 Blood Pressure 181/102 H 06/10/19 06:40 Pulse Oximetry 94 06/10/19 06:40 Course Orders Ordered: ED Orders 06/10/19 06:50 US scrotum Stat Chlamydia Gonorrhea PCR -URINE Stat Urinalysis and Microscopic Stat Vital Signs Vital signs: Vital Signs - 8 hr 06/10/19 06:40 Temperature 97.1 F L Pulse Rate 86 Respiratory Rate 15 Blood Pressure 181/102 H Pulse Oximetry 94 MDM - Male Genitourinary MDM Narrative Medical decision making narrative: Patient signed out to Dr. Costello while imaging and urine are pending. Discharge Plan Departure Clinical Impression: Pain in right testicle Prescriptions: No Action oxycodone 20 mg tablet 10 mg PO Q4-6H MDD 3 tabs PRN (Reason: pain) RF: 0
[2019-06-10 07:31] VITALS: BP 157/97; PULSE 69; RESP 20; O2SAT 96
--- NOTE | 2019-06-10 07:47 | ED_ITS ---
HPI - Male Genitourinary General Chief complaint: Urogenital-Male Stated complaint: right testicle has lumps,swelling,painful Time Seen by Provider: 06/10/19 06:38 Source: patient Mode of arrival: Ambulatory Limitations: no limitations History of Present Illness HPI Narrative: CHANGE OF SHIFT TRANSFER OF CARE: Report was provided by Dr. Boss at the change of shift. The patient presented with testicular pain and discomfort associated with 2 lumps on his testicles. The dental service technician reported that the patient had acute mild epididymitis and a cystocele. The official radiological report remains pending. A urinalysis was ordered on the patient as well as GC which was pending. The patient was initially examined and evaluated by Dr. Boss. Related Data Home Medications Medication Instructions Recorded Confirmed oxycodone 10 mg PO Q4-6H PRN MDD 3 tabs 12/14/18 Previous Rx's Medication Instructions Recorded doxycycline hyclate 100 mg PO BID #20 cap 06/10/19 naproxen [Naprosyn] 500 mg PO BID PRN #20 tab 06/10/19 Allergies Allergy/AdvReac Type Severity Reaction Status Date / Time No Known Drug Allergies Allergy Verified 08/15/17 00:15 Patient History Medical History Abdominal pain (Acute) Acute exacerbation of chronic low back pain (Acute) Degenerative joint disease of cervical and lumbar spine (Inactive) Laceration of nose (Acute) Left maxillary sinusitis (Acute) Low back pain (Acute) Palpitations (Acute) Supraumbilical hernia (Acute) Umbilical hernia (Acute) Surgical History History of back surgery (Acute) Family History Mother No problems noted. Father Leukemia Social History Smoking Status: Current every day smoker substance use type: does not use Smoking Status: Current every day smoker alcohol intake frequency: 0-2 drinks per day Substance Use Type: does not use Exam Narrative Exam Narrative: RE-EXAMINATION: The patient is awake alert oriented coherent cooperative in no acute distress. LUNGS: Clear and symmetrical HEART: Regular rhythm and rate ABDOMEN: Soft nontender no palpable organomegaly no guarding or rebound SCROTUM: Both testicles are descended. Right testicle is larger than the right. The patient has epididymus is swollen and tender especially over the lower pole of the testicle. The patient has a cystocele mass palpable over the superior pole. The rest of the testicle is mildly tender. NEUROLOGICAL: Awake alert oriented coherent ambulatory, moves all 4 extremities. Initial Vital Signs Initial Vital Signs: Vital Signs Temperature 97.1 F L 06/10/19 06:40 Pulse Rate 86 06/10/19 06:40 Respiratory Rate 15 06/10/19 06:40 Blood Pressure 181/102 H 06/10/19 06:40 Pulse Oximetry 94 06/10/19 06:40 Course Course Course Narrative: 0805: The patient is providing a urine sample at this time. The official radiology report of the ultrasound remains pending. The patient has been treated with doxycycline 100 mg p.o. and Toradol 30 mg IM. He complaints and states that his pain and discomfort is a dull achy discomfort that is 6 to 7/10 in intensity. The plan is to discharge the patient on doxycycline and Naprosyn. He will be advised to follow-up with his primary care physician in be rechecked in 48-72 hours if not improved or the urologist Dr. Denton. 0810: WBC is 11.4, hemoglobin 15.4 complete metabolic panel is normal glucose 116. 0815: The official report for the ultrasound remains pending. The patient will be discharged as soon as he provides us with a urine sample. He was advised that we will call him if there is any abnormality that we did not treat or account for. He was advised that he has hypertension that needs to be checked and monitored by his primary care physician. The patient states that he has his own pain medicines at home oxycodone that he will take for severe pain and discomfort. He was primarily worried that he had cancer. Orders Ordered: Discontinued Medications Doxycycline Hyclate (Vibramycin) 100 mg PO NOW ONE Stop: 06/10/19 07:55 Last Admin: 06/10/19 08:39 Dose: 100 mg Documented by: KAREN Ketorolac Tromethamine (Toradol) 30 mg IM NOW ONE Stop: 06/10/19 08:08 Last Admin: 06/10/19 08:36 Dose: 30 mg Documented by: KAREN Vital Signs Vital signs: Vital Signs - 8 hr 03/27/20 06:40 06/10/19 07:31 Temperature 97.1 F L Pulse Rate 86 69 Respiratory Rate 15 20 Blood Pressure 181/102 H Blood Pressure [Left Arm] 157/97 H Pulse Oximetry 94 96 MDM - Male Genitourinary Lab Data Labs: Lab Results 06/10/19 06/10/19 Range/Units 08:07 08:07 Urine Color Yellow Urine Appearance Clear Urine pH 5.5 (4.5-8.0) Ur Specific [place] 1.025 (1.000-1.035) Urine Protein Negative (Negative) Urine Glucose (UA) Negative (Negative) g/dL Urine Ketones Negative (NEGATIVE) Urine Occult Blood 3+ H (Negative) Urine Nitrate Negative (Negative) Urine Bilirubin Negative (NEGATIVE) Urine Urobilinogen 0.2 (0.2) E.U./dL Ur Leukocyte Esterase Negative (NEGATIVE) Urine RBC 10-30/hpf H (0-5/HPF) Urine WBC 0-1/hpf (0-5/HPF) Amorphous Sediment 1+ Urine Bacteria None seen (None) Urine Mucus 1+ H (Negative) Ur Culture Indicated? Cult not indicated Ur Chlamydia DNA (PCR) Not detected N gonorrhoeae DNA (PCR) Not detected Discharge Plan Departure Patient Disposition: Home Clinical Impression: Pain in right testicle, Epididymitis, Cystocele, male Discharge Date/Time: 06/10/19 09:11 Instructions: DI for Cystocele/Rectocele, DI for Epididymitis, DI for Testicular Pain Activity Restrictions/Additional Instructions: 1. Apply cold compresses as tolerated every 2 hours for 20 minutes to your swollen right testicle as tolerated. 2. Follow-up with your primary care physician to be rechecked and re-evaluated in 48-72 hours if not improved. You can also follow-up with the urologist Dr. Denton. Call his office to make a follow-up appointment. 3. Take the doxycycline as prescribed until completely gone. 4. For the pain and discomfort take the Naprosyn 500 mg twice a day. 5. If you develop worsening pain discomfort fever chills sweats, persistent nausea and vomiting, dizziness or passing-out you need to return to the emergency department. Prescriptions: New doxycycline hyclate 100 mg capsule 100 mg PO BID Qty: 20 RF: 0 naproxen [Naprosyn] 500 mg tablet 500 mg PO BID PRN (Reason: pain) Qty: 20 RF: 0 No Action oxycodone 20 mg tablet 10 mg PO Q4-6H MDD 3 tabs PRN (Reason: pain) RF: 0
[2019-06-10 08:13] LABS: Bacteria Urine None Seen
[2019-06-10 08:15] LABS: Appearance Urine UA CLEAR; Bilirubin Urine UA NEGATIVE (NEGATIVE); Color Urine UA YELLOW; Glucose Urine UA NEGATIVE (Negative); Ketones Urine UA NEGATIVE (NEGATIVE); Nitrite Urine UA NEGATIVE (Negative); Occult Blood Urine UA 3+ (Negative); Protein Urine UA NEGATIVE (Negative); Specific Gravity Urine UA 1.025 (1.000-1.035); Urobilinogen Urine UA 0.2 E.U./dL (0.2); pH Urine UA 5.5 (4.5-8.0)
[2019-06-10 08:32] LABS: RBC Urine 10-30/HPF (0-5/HPF)
[2019-06-10 08:33] LABS: Amorphous Sediment Urine 1+; Culture Indicated Urine Cult Not Indicated; Leukocyte Esterase Urine UA NEGATIVE (NEGATIVE); Mucus Urine 1+ (Negative); WBC Urine 0-1/HPF (0-5/HPF)
[2019-06-10] MEDS: KETOROLAC 60 MG/2 ML VIAL 30 MG IM (08:36)
[2019-06-10] MEDS: DOXYCYCLINE HYCLATE 100 MG TABLET PO (08:39)
[2019-06-10 09:08] VITALS: BP 163/98; PULSE 73; RESP 19; O2SAT 99
[2019-06-10 09:43] LABS: Urine N gonorrhoeae NOT DETECTED
[2019-06-10 09:49] LABS: Urine Chlamydia NOT DETECTED
== END 2019-06-10 09:11 | disposition home or self-care (01) ==
PROVIDERS: Emergency Medicine; Emergency Provider Emergency Medicine
DX: N50.811 Right testicular pain (principal); N45.1 Epididymitis; N32.89 Other specified disorders of bladder
CPT/HCPCS: 76870; 81001; 87491; 87591; 96372; 99283; 99284; J1885

== ENCOUNTER → 2020-03-01 09:34 | Outpatient (CLI) | payer OTHER, SELFPAY ==
--- NOTE | 2020-03-01 | DI.MRI.S_ITS ---
PROCEDURE: MR LUMBAR SPINE WO CON INDICATIONS: Spinal stenosis, lumbosacral region TECHNIQUE: Noncontrast sagittal T1 spin echo and T2 fast echo, sagittal STIR, axial T1 and T2 fast spin echo through the lumbar spine. In cases with scoliosis, additional coronal T2 fast spin echo may be performed. COMPARISON: [facility], MR, L-SPINE WITHOUT CONTRAST, 06/09/2014, 7:45. FINDINGS: Image quality: Excellent. Alignment and Curvature: There is trace retrolisthesis of L4 on L5 and grade 1 anterolisthesis of L5 on S1. Bone Marrow: No fracture. Postsurgical changes related to posterior decompression at L4 level. There is also L5-S1 spinal fixation hardware and associated artifact. Spinal Cord: Conus medullaris terminates at the L1 level. Visualized cord demonstrates normal signal and size. Paraspinous Soft Tissues: Subcentimeter renal foci, statistically cysts, although technically too small to characterize accurately and therefore nonspecific. L1-L2: Normal appearance. L2-L3: Normal appearance. L3-L4: Normal appearance. L4-L5: No canal stenosis. Mild left foraminal narrowing. No right foraminal stenosis. Partial effacement of the left lateral recess, this appears progressed since the prior study L5-S1: No canal stenosis. Lateral recesses appears patent. Severe bilateral foraminal stenosis with nerve root compression although unchanged appearance. IMPRESSION: Slight interval progression and left L4-L5 lateral recess narrowing since the prior study Severe bilateral L5-S1 foraminal stenoses, although grossly unchanged Multilevel spondylolisthesis Postsurgical and spondylitic changes as above Dictated by: Judah Acevedo M.D. on 03/01/2020 at 10:08 Approved by: Judah Acevedo M.D. on 03/01/2020 at 10:14
== END ==
PROVIDERS: Referring Provider Acupuncturist; Visit Provider Acupuncturist
DX: M48.07 Spinal stenosis, lumbosacral region (principal); M48.061 Spinal stenosis, lumbar region without neurogenic claudication; M43.17 Spondylolisthesis, lumbosacral region
CPT/HCPCS: 72148

== ENCOUNTER 2020-04-13 03:50 | Emergency (ER) | payer MEDICARE, SELFPAY ==
[2020-04-13 03:56] VITALS: BP 175/122; PULSE 99; O2SAT 96
[2020-04-13 03:57] VITALS: BP 169/114; PULSE 91; PULSE 96; RESP 18; TEMP 36.5; O2SAT 100; O2SAT 96; BMI 32.3
[2020-04-13 04:00] VITALS: BP 176/107; PULSE 91; O2SAT 98
--- NOTE | 2020-04-13 04:06 | DI.CT.S_ITS ---
PROCEDURE: CT HEAD/BRAIN WO CON INDICATIONS: severe ARMENDARIZ, sudden with cough, behind left eye, critical BP TECHNIQUE: Noncontrast 4.5 mm thick angled axial sections acquired from the foramen magnum to the vertex, with coronal and sagittal reformats. For radiation dose reduction, the following was used: automated exposure control, adjustment of mA and/or kV according to patient size. COMPARISON: None. FINDINGS: Image quality: Excellent. CSF spaces: Basal cisterns are patent. No extra-axial fluid collections. Ventricles are normal in size and shape. Brain: No midline shift. No intracranial masses or hemorrhage. Chi-white matter interface is normal. Skull and face: Calvarium and visualized facial bones are intact, without suspicious lesions. Sinuses: Visualized sinuses and mastoids are clear. IMPRESSION: 1. No acute intracranial abnormalities. No significant discrepancy with the manufacturing supervisor 2nd shift radiology preliminary report. Dictated by: Messi Hollis M.D. on 04/13/2020 at 7:23 Approved by: Messi Hollis M.D. on 04/13/2020 at 7:24
--- NOTE | 2020-04-13 04:07 | ED.HA ---
HPI - Headache General Chief Complaint: Headache Stated Complaint: Severe pain in head x5 day Time Seen by Provider: 04/13/20 03:50 Source: patient Mode of arrival: Ambulatory Limitations: no limitations History of Present Illness HPI Narrative: 39M smoker with history of palpitations presents with his and the chief complaint of 9/10 sharp and stabbing pain just behind and above the left eye. He states it started with a dry coughing episode 5 days ago and has been there off and on every since. He states the pain is worse with subsequent coughs or when leaning forward. He states he has had no trauma or injury. He denies fever or chills. He has no neck pain. He denies blurred or double vision. He has had no numbness, tingling, weakness or other neurologic symptoms. He denies runny nose, sneezing, or significant drainage. He's had no confusion or altered mental status. He denies the use of blood thinners. He has no chest pain, SOB, abdominal pain, N/V/D. He states that when the pain ramps up it stays bad for about an hour and slowly goes away. MD Complaint: headache Onset (ago): day(s) Onset description: sudden Location: right and frontal Severity: severe Severity scale (1-10): 9 Quality: sharp Relieving factors: nothing Exacerbating factors: other Associated symptoms: none Other symptoms: cough Treatments prior to arrival: prescription analgesic Related Data Home Medications Medication Instructions Recorded Confirmed oxycodone 10 mg PO Q4-6H PRN MDD 3 tabs 12/14/18 Previous Rx's Medication Instructions Recorded doxycycline hyclate 100 mg PO BID #20 cap 06/10/19 naproxen [Naprosyn] 500 mg PO BID PRN #20 tab 06/10/19 Allergies Allergy/AdvReac Type Severity Reaction Status Date / Time No Known Drug Allergies Allergy Verified 08/15/17 00:15 Review of Systems Constitutional Constitutional: Denies chills, Denies fatigue, Denies fever(s), Denies frequent falls, Reports headache(s), Denies lethargy and Denies weakness Eyes Eyes: Denies change in vision, Denies eye discharge, Denies irritation and Denies loss of vision ENT Ears, Nose, Mouth, and Throat: Denies change in voice, Denies dizziness, Reports headache(s), Denies neck pain, Denies sore throat and Denies throat swelling Cardiovascular Cardiovascular: Denies chest pain, Denies irregular heart rhythm, Denies lightheadedness, Denies palpitations, Denies dyspnea, Denies dyspnea on exertion and Denies orthopnea Respiratory Respiratory: Denies cough, Denies dyspnea, Denies dyspnea on exertion and Denies wheezing Gastrointestinal Gastrointestinal: Denies abdominal pain, Denies change in bowel habits, Denies diarrhea, Denies nausea and Denies vomiting Musculoskeletal Musculoskeletal: Denies neck pain and Denies numbness Integumentary/Breasts Skin/Breast: Denies pruritus, Denies erythema, Denies rash and Denies wounds Neurologic Neurologic: Denies behavioral changes, Denies confusion, Denies dizziness, Denies frequent falls, Reports headache(s), Denies loss of vision, Denies numbness and Denies weakness Psychiatric Psychiatric: Denies anxiety, Denies behavioral changes, Denies confusion, Denies depression, Denies homicidal ideation and Denies suicidal ideation Endocrine Endocrine: Denies fatigue, Denies flushing and Denies palpitations Hematologic/Lymphatic Hematologic/Lymphatic: Denies easy bruising Allergic/Immunologic Allergic/Immunologic: Denies urticaria, Denies throat swelling and Denies wheezing Patient History Medical History (Updated 04/13/20 @ 04:38 by Riley Murphy DO) Abdominal pain Acute exacerbation of chronic low back pain Degenerative joint disease of cervical and lumbar spine Laceration of nose Left maxillary sinusitis Low back pain Palpitations Supraumbilical hernia Umbilical hernia Surgical History History of back surgery Family History Mother No problems noted. Father Leukemia Social History Smoking Status: Current every day smoker substance use type: does not use Smoking Status: Current every day smoker alcohol intake frequency: 0-2 drinks per day Substance Use Type: does not use Exam Narrative Exam Narrative: GEN: AOx3 and in mild distress HEAD: no swelling, redness, or temporal tenderness. Moderate worsening on palpation of L frontal sinus. NECK: No painful ROM or meningeal signs. EYES: Pupils are equal, round, and reactive to light and accommodation. Extraoccular muscles are intact bilaterally. There is no subconjunctival hemorrhage or exudate. CHEST: Lungs are clear to auscultation bilaterally and free of wheezes, rales, or rhonchi. Heart rate is regular rhythm, there are no murmurs, clicks, rubs, or gallops. There is no chest wall tenderness. ABD: Abdomen is soft and nontender. There is no guarding or rebound. Bowel sounds are normal in all 4 quadrants. There is no mass or organomegaly. EXT: Full painless ROM of all extremities with no loss of sensation or strength. SKIN: Warm, pink, and dry. No erythema or rash NIH Stroke Scale 1a. LOC: Patient is alert and keenly responsive (0) 1b. LOC Questions: Patient answers both LOC questions accurately (0) 1c. LOC Commands: Patient performs both tasks correctly (0) 2. Best Gaze: Normal (0) 3. Visual: No visual loss (0) 4. Facial palsy: Normal symmetrical movements (0) 5. Motor arm: No drift (0) 6. Motor leg: No drift (0) 7. Limb ataxia: Absent (0) 8. Sensory: Normal (0) 9. Best language: No aphasia; normal (0) 10. Dysarthria: Normal (0) 11. Extinction and inattention: No abnormality (0) NIHSS: 0 Initial Vital Signs Initial Vital Signs: Vital Signs Temperature 97.7 F 04/13/20 03:57 Pulse Rate 91 H 04/13/20 03:57 Respiratory Rate 18 04/13/20 03:57 Blood Pressure 169/114 H 04/13/20 03:57 Pulse Oximetry 100 04/13/20 03:57 Course Orders Ordered: ED Orders 04/13/20 04:06 CT head/brain wo con Stat Vital Signs Vital signs: Vital Signs - 8 hr 04/13/20 03:57 Temperature 97.7 F Pulse Rate 91 H Respiratory Rate 18 Blood Pressure 169/114 H Pulse Oximetry 100 [facility] - Headache Imaging Data CT scan - head: Radiologist's Impression: DEEPA[facility]. [facility] Narrative Medical decision making narrative: Headache considerations include, but not limited to: Subarachnoid hemorrhage, but unlikely , not worst of life, or neck pain Meningitis considered, but thought unlikely given lack of Brudzinski's, Kernig's sign, altered mental status or fever Giant cell arteritis considered, but thought unlikely given lack of unilateral findings, pain in yazidism, vision change HTN Emergency considered, but thought unlikely given normal vitals Other serious diagnoses considered unlikely given lack of red flag findings such as sudden onset, increasing frequency, immunocompromise, systemic signs (fever, chills, stiff neck, or rash), focal neurologic findings, trauma, blood thinners, etc. Discharge Plan Departure Patient Disposition: Home Clinical Impression: Headache Qualifiers: Headache type: unspecified Headache chronicity pattern: acute headache Intractability: not intractable Qualified Code(s): R51.9 - Headache, unspecified Instructions: DI for Sinus Headache, DI for Headache Activity Restrictions/Additional Instructions: *You have been diagnosed with [ acute left frontal headache, likely related to sinus pressure. Head CT and exam are very reassuring. ] *What to do: *Take medications as directed including a combination of antihistamines like benadryl to dry secretions and decongestants (sudafed) *Follow up with your primary care provider in 2-3 days, call for an appointment. Let them know you were seen in the Emergency Department and that we ask that you be seen in follow up *Return to ER if you should have any new, worsening or concerning symptoms, such as [increased pain, neurologic symptoms such as numbness, tingling or weakness, altered mental status, vision change, or other bothersome symptoms ] Prescriptions: No Action doxycycline hyclate 100 mg capsule 100 mg PO BID Qty: 20 RF: 0 naproxen [Naprosyn] 500 mg tablet 500 mg PO BID PRN (Reason: pain) Qty: 20 RF: 0 oxycodone 20 mg tablet 10 mg PO Q4-6H MDD 3 tabs PRN (Reason: pain) RF: 0
[2020-04-13 04:17] VITALS: BP 184/108; PULSE 99; O2SAT 97
[2020-04-13 04:30] VITALS: BP 160/94; PULSE 94; O2SAT 95
== END 2020-04-13 04:50 | disposition home or self-care (01) ==
PROVIDERS: Emergency Provider Emergency Medicine
DX: R51.9 Headache, unspecified (principal); R05 Cough
CPT/HCPCS: 70450; 99283; 99284

== ENCOUNTER 2020-10-12 16:46 | Emergency (ER) | payer MEDICARE, SELFPAY ==
[2020-10-12] VITALS (22 sets, daily range): BP systolic 153–196; BP diastolic 78–120; PULSE 70–93; RESP 15–29; TEMP 36.7; O2SAT 94–98; BMI 33.3
--- NOTE | 2020-10-12 17:01 | DI.RAD.S_ITS ---
PROCEDURE: XR CHEST 1V INDICATIONS: chest pain TECHNIQUE: One view of the chest was acquired. COMPARISON: [facility], CR, XR CHEST 1V, 12/14/2018, 14:47. FINDINGS: Surgical changes and devices: Lower cervical spinal fusion hardware is noted. Lungs and pleura: Lungs are clear. No pleural effusions or pneumothorax. Mediastinum: Mediastinal contours appear normal. Heart size is normal. Bones and chest wall: No suspicious bony lesions. Overlying soft tissues appear unremarkable. IMPRESSION: No acute cardiopulmonary abnormality. Dictated by: Lavelle Nichole M.D. on 10/12/2020 at 17:27 Approved by: Lavelle Nichole M.D. on 10/12/2020 at 17:43
--- NOTE | 2020-10-12 17:18 | ED_ITS ---
HPI - Chest Pain <Riley Murphy DO - Last Filed: 10/13/20 08:18> General Chief Complaint: Chest Pain Stated Complaint: COUGH CHEST HEAVY LEFT ARM WEAKNESS TIRED Time Seen by Provider: 10/12/20 16:50 Source: patient and family Mode of arrival: Ambulatory Related Data Home Medications Medication Instructions Recorded Confirmed oxycodone 20 mg tablet 10 mg PO Q4-6H PRN MDD 3 tabs 12/14/18 10/12/20 Previous Rx's Medication Instructions Recorded doxycycline hyclate 100 mg capsule 100 mg PO BID #20 cap 06/10/19 naproxen 500 mg tablet (Naprosyn) 500 mg PO BID PRN #20 tab 06/10/19 metoprolol tartrate 50 mg tablet 50 mg PO BID #180 tab 10/12/20 Allergies Allergy/AdvReac Type Severity Reaction Status Date / Time No Known Drug Allergies Allergy Verified 08/15/17 00:15 <Keli Ceron MD - Last Filed: 10/13/20 07:22> History of Present Illness HPI narrative: 39-year-old gentleman with chronic recurrent chest pain exertional dyspnea significant family history for coronary artery disease currently on no medications for any of those issues with a history of L5 injury postsurgery on oxycodone 40-50 mg spread throughout the day. Notes that over the last month he has had progressive symptoms of increasing fatigue significant exertional fatigue he reports that simply walking across the room he will be exceptionally tired moderately short of breath and noticed some tingling and sometimes numbness radiating down into the left arm. He notes that the symptoms are unrelated temporally to whether not he has taken his chronic pain medication. He also notes that his blood pressures are typically high he has been checking numbers over the last weeks. The highest was 210/120 an average is are in the 170-1 80/110 range. He notes that room last week symptoms have been significantly worse. He describes no palpitations, no abdominal pain he does not become diaphoretic with these episodes. No lower extremity edema no diarrhea no dysuria hematuria or flank pain. He is seen by primary care at the OR in [place]. He states that despite asking for help with blood pressure management and smoking cessation as well as lipid management, none of these have triggered any additional workup or medicine management. Was seen in December of 2018 with similar complaints and recommendation at that time was to follow-up for blood pressure as well as outpatient nuclear medicine stress testing <Keli Ceron MD - Last Filed: 10/13/20 07:22> Review of Systems Narrative: Remainder of complete review of systems is otherwise unremarkable except for that included in the HPI. Patient History <Riley Murphy DO - Last Filed: 10/13/20 08:18> Medical History (Updated 10/12/20 @ 21:14 by Keli Ceron MD) Abdominal pain Acute exacerbation of chronic low back pain Degenerative joint disease of cervical and lumbar spine Laceration of nose Left maxillary sinusitis Low back pain Palpitations Supraumbilical hernia Umbilical hernia Surgical History History of back surgery Family History Mother Coronary artery disease Father Leukemia Grandfather Coronary artery disease Unknown Coronary artery disease Social History Smoking Status: Current every day smoker substance use type: does not use Smoking Status: Current every day smoker alcohol intake frequency: 0-2 drinks per day Substance Use Type: does not use Exam <Riley Murphy DO - Last Filed: 10/13/20 08:18> Initial Vital Signs Initial Vital Signs: Vital Signs Temperature 98.1 F 10/12/20 16:58 Pulse Rate 83 10/12/20 16:58 Respiratory Rate 17 10/12/20 16:58 Blood Pressure 196/120 H 10/12/20 16:58 Pulse Oximetry 98 10/12/20 16:58 <Keli Ceron MD - Last Filed: 10/13/20 07:22> Narrative Exam Narrative: General: Fatigued appearing, in no acute distress. Able to give a complete and coherent history. Well-nourished well-developed HEENT: Moist mucous membranes, normal sclera with reactive pupils, Neck: No JVD, supple Respiratory: Lungs are clear to auscultation, no wheezing no rales no rhonchi. Full and symmetrical air movement Cardiac: Regular rate and rhythm no murmurs no bruits Abdomen: Soft, nontender, good bowel tones, no flank pain Skin: Warm and dry, no rashes Neurologic: Grossly neurologically intact with no obvious asymmetries or abnormalities Extremities: No trauma, well perfused Psych: Frustrated but otherwise Cooperative, appropriate insight and affect Initial Vital Signs Initial Vital Signs: Vital Signs Temperature 98.1 F 10/12/20 16:58 Pulse Rate 83 10/12/20 16:58 Respiratory Rate 17 10/12/20 16:58 Blood Pressure 196/120 H 10/12/20 16:58 Pulse Oximetry 98 10/12/20 16:58 Course <Riley Murphy DO - Last Filed: 10/13/20 08:18> Course Course Narrative: I had created a chart on accident, did not see patient or play any role in care Orders Ordered: Discontinued Medications Metoprolol Tartrate (Metoprolol Ir 25 Mg Tablet) 50 mg PO NOW ONE Stop: 10/12/20 18:54 Last Admin: 10/12/20 19:03 Dose: 50 mg Documented by: JASMINOR Nitroglycerin (Nitroglycerin 0.4 Mg Sl Tab) 0.4 mg SL [id number] PRN PRN Reason: Chest Pain Last Admin: 10/12/20 18:57 Dose: 0.4 mg Documented by: Admin: 10/12/20 18:51 Dose: 0.4 mg Documented by: Admin: 10/12/20 18:45 Dose: 0.4 mg Documented by: AGUILAR Vital Signs Vital signs: Vital Signs - 8 hr 10/12/20 16:58 10/12/20 17:11 10/12/20 17:15 Temperature 98.1 F Pulse Rate 83 78 78 Respiratory Rate 17 16 Blood Pressure 196/120 H 173/111 H Pulse Oximetry 98 96 95 10/12/20 17:30 10/12/20 17:45 10/12/20 18:00 Temperature Pulse Rate 80 79 84 Respiratory Rate Blood Pressure 170/106 H 156/102 H 172/99 H Pulse Oximetry 98 97 98 10/12/20 18:15 10/12/20 18:30 10/12/20 18:38 Temperature Pulse Rate 79 78 82 Respiratory Rate 20 19 24 Blood Pressure 162/101 H 154/100 H 159/106 H Pulse Oximetry 96 96 97 10/12/20 18:45 10/12/20 18:50 10/12/20 18:51 Temperature Pulse Rate 77 93 H Respiratory Rate 24 18 Blood Pressure 164/102 H 162/89 H 162/89 H Pulse Oximetry 97 95 10/12/20 18:57 10/12/20 19:00 10/12/20 19:15 Temperature Pulse Rate 91 H 89 83 Respiratory Rate 24 16 19 Blood Pressure 169/86 H 166/85 H 153/78 H Pulse Oximetry 97 96 96 10/12/20 19:30 10/12/20 19:45 10/12/20 20:00 Temperature Pulse Rate 78 75 78 Respiratory Rate 20 18 15 Blood Pressure 166/104 H 173/106 H Pulse Oximetry 95 96 96 10/12/20 20:15 10/12/20 20:30 10/12/20 20:45 Temperature Pulse Rate 73 74 74 Respiratory Rate 24 29 H 25 H Blood Pressure 156/98 H 159/102 H 159/104 H Pulse Oximetry 96 96 98 10/12/20 21:00 Temperature Pulse Rate 70 Respiratory Rate 19 Blood Pressure 164/108 H Pulse Oximetry 94 <Keli Ceron MD - Last Filed: 10/13/20 07:22> Orders Ordered: Discontinued Medications Metoprolol Tartrate (Metoprolol Ir 25 Mg Tablet) 50 mg PO NOW ONE Stop: 10/12/20 18:54 Last Admin: 10/12/20 19:03 Dose: 50 mg Documented by: AGUILAR Nitroglycerin (Nitroglycerin 0.4 Mg Sl Tab) 0.4 mg SL [id number] PRN PRN Reason: Chest Pain Last Admin: 10/12/20 18:57 Dose: 0.4 mg Documented by: Admin: 10/12/20 18:51 Dose: 0.4 mg Documented by: Admin: 10/12/20 18:45 Dose: 0.4 mg Documented by: AGUILAR Vital Signs Vital signs: Vital Signs - 8 hr 10/12/20 16:58 10/12/20 17:11 10/12/20 17:15 Temperature 98.1 F Pulse Rate 83 78 78 Respiratory Rate 17 16 Blood Pressure 196/120 H 173/111 H Pulse Oximetry 98 96 95 10/12/20 17:30 10/12/20 17:45 10/12/20 18:00 Temperature Pulse Rate 80 79 84 Respiratory Rate Blood Pressure 170/106 H 156/102 H 172/99 H Pulse Oximetry 98 97 98 10/12/20 18:15 10/12/20 18:30 10/12/20 18:38 Temperature Pulse Rate 79 78 82 Respiratory Rate 20 19 24 Blood Pressure 162/101 H 154/100 H 159/106 H Pulse Oximetry 96 96 97 10/12/20 18:45 10/12/20 18:50 10/12/20 18:51 Temperature Pulse Rate 77 93 H Respiratory Rate 24 18 Blood Pressure 164/102 H 162/89 H 162/89 H Pulse Oximetry 97 95 10/12/20 18:57 10/12/20 19:00 10/12/20 19:15 Temperature Pulse Rate 91 H 89 83 Respiratory Rate 24 16 19 Blood Pressure 169/86 H 166/85 H 153/78 H Pulse Oximetry 97 96 96 10/12/20 19:30 10/12/20 19:45 10/12/20 20:00 Temperature Pulse Rate 78 75 78 Respiratory Rate 20 18 15 Blood Pressure 166/104 H 173/106 H Pulse Oximetry 95 96 96 10/12/20 20:15 10/12/20 20:30 10/12/20 20:45 Temperature Pulse Rate 73 74 74 Respiratory Rate 24 29 H 25 H Blood Pressure 156/98 H 159/102 H 159/104 H Pulse Oximetry 96 96 98 10/12/20 21:00 Temperature Pulse Rate 70 Respiratory Rate 19 Blood Pressure 164/108 H Pulse Oximetry 94 MDM - Chest Pain <Riley Murphy, DO - Last Filed: 10/13/20 08:18> Lab Data Result diagrams: 10/12/20 17:06 10/12/20 17:06 Labs: Lab Results 10/12/20 10/12/20 10/12/20 Range/Units 17:00 17:06 17:06 WBC 12.9 H (4.5-11.0) X10^3/uL RBC 4.90 (4.5-5.9) X10^6/uL Hgb 15.7 (13.5-17.5) g/dL Hct 45.5 (41-53) % MCV 92.7 (80-100) fL MCH 32.0 (26-34) PG MCHC 34.5 (30-36) % RDW 13.1 (11.6-14.8) % Plt Count 294 (150-400) X10^3/uL Neut % (Auto) 67.5 (50-75) % Lymph % (Auto) 23.4 L (25-40) % [place] % (Auto) 6.0 (3-14) % Eos % (Auto) 1.7 L (2-4) % Baso % (Auto) 1.4 (0-2) % Neut # (Auto) 8700 H (1618-4056) /uL Lymph # (Auto) 3000 (2635-4316) /uL [place] # (Auto) 800 (0-900) /uL Eos # (Auto) 200 (0-450) /uL Baso # (Auto) 200 H (0-100) /uL D-Dimer (<230) ng/mL Sodium 138 (137-145) mmol/L Potassium 4.0 (3.4-5.1) mmol/L Chloride 106 (98-107) mmol/L Carbon Dioxide 23 (22-32) mmol/L BUN 14 (9-20) mg/dL Creatinine 1.02 (0.66-1.25) mg/dL Estimated GFR > 60.0 (>60) mL/min BUN/Creatinine Ratio 13.7 (6-22) Glucose 97 (70-100) mg/dL Calcium 10.1 (8.4-10.2) mg/dL Total Bilirubin 0.4 (0.2-1.3) mg/dL AST 34 (17-59) IU/L ALT 52 H (<50) IU/L Alkaline Phosphatase 83 (38-126) U/L Total Creatine Kinase 132 (55-170) U/L CK-MB (CK-2) 0.36 (<2.37) ng/mL CK-MB (CK-2) Rel Index 0.3 L (1.5-5.0) % Troponin I < 0.012 (0.01-0.034) ng/mL Total Protein 7.6 (6.3-8.2) g/dL Albumin 4.5 (3.5-5.0) g/dL Globulin 3.1 (1.7-4.1) g/dL Albumin/Globulin Ratio 1.5 (1.0-2.8) Lipase 69 (23-300) U/L SARS-CoV-2 (PCR) Negative (Negative) 07/30/21 Range/Units 17:06 WBC (4.5-11.0) X10^3/uL RBC (4.5-5.9) X10^6/uL Hgb (13.5-17.5) g/dL Hct (41-53) % MCV (80-100) fL MCH (26-34) PG MCHC (30-36) % RDW (11.6-14.8) % Plt Count (150-400) X10^3/uL Neut % (Auto) (50-75) % Lymph % (Auto) (25-40) % [place] % (Auto) (3-14) % Eos % (Auto) (2-4) % Baso % (Auto) (0-2) % Neut # (Auto) (0933-7039) /uL Lymph # (Auto) (5456-4663) /uL [place] # (Auto) (0-900) /uL Eos # (Auto) (0-450) /uL Baso # (Auto) (0-100) /uL D-Dimer < 200 (<230) ng/mL Sodium (137-145) mmol/L Potassium (3.4-5.1) mmol/L Chloride (98-107) mmol/L Carbon Dioxide (22-32) mmol/L BUN (9-20) mg/dL Creatinine (0.66-1.25) mg/dL Estimated GFR (>60) mL/min BUN/Creatinine Ratio (6-22) Glucose (70-100) mg/dL Calcium (8.4-10.2) mg/dL Total Bilirubin (0.2-1.3) mg/dL AST (17-59) IU/L ALT (<50) IU/L Alkaline Phosphatase (38-126) U/L Total Creatine Kinase (55-170) U/L CK-MB (CK-2) (<2.37) ng/mL CK-MB (CK-2) Rel Index (1.5-5.0) % Troponin I (0.01-0.034) ng/mL Total Protein (6.3-8.2) g/dL Albumin (3.5-5.0) g/dL Globulin (1.7-4.1) g/dL Albumin/Globulin Ratio (1.0-2.8) Lipase (23-300) U/L SARS-CoV-2 (PCR) (Negative) <Keli Ceron MD - Last Filed: 10/13/20 07:22> Lab Data Labs: Lab Results 10/12/20 10/12/20 10/12/20 Range/Units 17:00 17:06 17:06 WBC 12.9 H (4.5-11.0) X10^3/uL RBC 4.90 (4.5-5.9) X10^6/uL Hgb 15.7 (13.5-17.5) g/dL Hct 45.5 (41-53) % MCV 92.7 (80-100) fL MCH 32.0 (26-34) PG MCHC 34.5 (30-36) % RDW 13.1 (11.6-14.8) % Plt Count 294 (150-400) X10^3/uL Neut % (Auto) 67.5 (50-75) % Lymph % (Auto) 23.4 L (25-40) % [place] % (Auto) 6.0 (3-14) % Eos % (Auto) 1.7 L (2-4) % Baso % (Auto) 1.4 (0-2) % Neut # (Auto) 8700 H (1620-1560) /uL Lymph # (Auto) 3000 (3440-3618) /uL [place] # (Auto) 800 (0-900) /uL Eos # (Auto) 200 (0-450) /uL Baso # (Auto) 200 H (0-100) /uL D-Dimer (<230) ng/mL Sodium 138 (137-145) mmol/L Potassium 4.0 (3.4-5.1) mmol/L Chloride 106 (98-107) mmol/L Carbon Dioxide 23 (22-32) mmol/L BUN 14 (9-20) mg/dL Creatinine 1.02 (0.66-1.25) mg/dL Estimated GFR > 60.0 (>60) mL/min BUN/Creatinine Ratio 13.7 (6-22) Glucose 97 (70-100) mg/dL Calcium 10.1 (8.4-10.2) mg/dL Total Bilirubin 0.4 (0.2-1.3) mg/dL AST 34 (17-59) IU/L ALT 52 H (<50) IU/L Alkaline Phosphatase 83 (38-126) U/L Total Creatine Kinase 132 (55-170) U/L CK-MB (CK-2) 0.36 (<2.37) ng/mL CK-MB (CK-2) Rel Index 0.3 L (1.5-5.0) % Troponin I < 0.012 (0.01-0.034) ng/mL Total Protein 7.6 (6.3-8.2) g/dL Albumin 4.5 (3.5-5.0) g/dL Globulin 3.1 (1.7-4.1) g/dL Albumin/Globulin Ratio 1.5 (1.0-2.8) Lipase 69 (23-300) U/L SARS-CoV-2 (PCR) Negative (Negative) 10/12/20 Range/Units 17:06 WBC (4.5-11.0) X10^3/uL RBC (4.5-5.9) X10^6/uL Hgb (13.5-17.5) g/dL Hct (41-53) % MCV (80-100) fL MCH (26-34) PG MCHC (30-36) % RDW (11.6-14.8) % Plt Count (150-400) X10^3/uL Neut % (Auto) (50-75) % Lymph % (Auto) (25-40) % [place] % (Auto) (3-14) % Eos % (Auto) (2-4) % Baso % (Auto) (0-2) % Neut # (Auto) (2894-3719) /uL Lymph # (Auto) (8678-1436) /uL [place] # (Auto) (0-900) /uL Eos # (Auto) (0-450) /uL Baso # (Auto) (0-100) /uL D-Dimer < 200 (<230) ng/mL Sodium (137-145) mmol/L Potassium (3.4-5.1) mmol/L Chloride (98-107) mmol/L Carbon Dioxide (22-32) mmol/L BUN (9-20) mg/dL Creatinine (0.66-1.25) mg/dL Estimated GFR (>60) mL/min BUN/Creatinine Ratio (6-22) Glucose (70-100) mg/dL Calcium (8.4-10.2) mg/dL Total Bilirubin (0.2-1.3) mg/dL AST (17-59) IU/L ALT (<50) IU/L Alkaline Phosphatase (38-126) U/L Total Creatine Kinase (55-170) U/L CK-MB (CK-2) (<2.37) ng/mL CK-MB (CK-2) Rel Index (1.5-5.0) % Troponin I (0.01-0.034) ng/mL Total Protein (6.3-8.2) g/dL Albumin (3.5-5.0) g/dL Globulin (1.7-4.1) g/dL Albumin/Globulin Ratio (1.0-2.8) Lipase (23-300) U/L SARS-CoV-2 (PCR) (Negative) Imaging Data Chest x-ray: My Impression: FINDINGS: Surgical changes and devices: Lower cervical spinal fusion hardware is noted. Lungs and pleura: Lungs are clear. No pleural effusions or pneumothorax. Mediastinum: Mediastinal contours appear normal. Heart size is normal. Bones and chest wall: No suspicious bony lesions. Overlying soft tissues appear unremarkable. IMPRESSION: No acute cardiopulmonary abnormality. Dictated by: Lavelle Nichole M.D. on 10/12/2020 at 17:27 ECG Data Interpretation: Sinus rhythm at a rate of 78 Normal interval, normal axis No acute ischemic changes MDM Narrative Medical decision making narrative: 39-year-old gentleman with a strong family cardiac history, personal history of smoking currently 1/2 pack a day and trying to cut back, untreated hypertension and unevaluated lipid levels. He is complaining a month of exertional dyspnea with normal workup today. No evidence of pulmonary embolism, acute infectious etiology, cardiomegaly, congestive heart failure, pneumonia. He has no evidence of acute coronary syndrome. Blood pressures are significantly elevated With the chest pressure and pain down his arm will see if nitroglycerin influences this at all. Will also add oral metoprolol and re-evaluate blood pressure. Discharge Plan Departure Patient Disposition: Home Clinical Impression: Palpitations Hypertension Qualifiers: Hypertension type: primary hypertension Qualified Code(s): I10 - Essential (primary) hypertension Instructions: DI for Chest Pain Activity Restrictions/Additional Instructions: Thank you for coming in today With your current evaluation I am not finding evidence of an acute heart attack, lymphoma or other infection. You do have significantly high blood pressure and do need to have this treated. I am going to start you on 50 mg of metoprolol morning and night. Please keep track of your blood pressures and schedule an appointment with her primary care doctor at the OR to discuss hypertension and appropriate treatment. I suspect that you are going to need more than 1 medication to control this blood pressure. Please take in all of your blood pressure readings and the consistent in advocating for yourself Regarding your chest pain and family history this along with your significant elevated blood pressure and smoking history all put you at significant risk for cardiac issues. You do not need an emergent hospital admission or emergent studies but you do need appropriate outpatient follow-up. My next recommendation in this workup for you would be a nuclear medicine cardiac stress test and cardiology consultation might be appropriate based on the comfort level of your primary care provider. I wish you the best in the follow-up with the OR and her primary care provider Prescriptions: New metoprolol tartrate 50 mg tablet 50 mg PO BID Qty: 180 RF: 0 No Action doxycycline hyclate 100 mg capsule 100 mg PO BID Qty: 20 RF: 0 naproxen [Naprosyn] 500 mg tablet 500 mg PO BID PRN (Reason: pain) Qty: 20 RF: 0 oxycodone 20 mg tablet 10 mg PO Q4-6H MDD 3 tabs PRN (Reason: pain) RF: 0
[2020-10-12 17:53] LABS: Add Manual Diff / Slide Review NO; Basophils Absolute Auto 200 /uL (0-100); Basophils Percent Auto 1.4 % (0-2); Eosinophils Absolute Auto 200 /uL (0-450); Eosinophils Percent Auto 1.7 % (2-4); Hematocrit 45.5 % (41-53); Hemoglobin 15.7 g/dL (13.5-17.5); Lymphocytes Absolute Auto 3000 /uL (1100-4500); Lymphocytes Percent Auto 23.4 % (25-40); Mean Corpuscular HGB Conc 34.5 % (30-36); Mean Corpuscular Volume 92.7 fL (80-100); Monocytes Absolute Auto 800 /uL (0-900); Neutrophils Absolute Auto 8700 /uL (1500-7000); Neutrophils Percent Auto 67.5 % (50-75); Platelet Count 294 X10^3/uL (150-400); Red Cell Distribution Width 13.1 % (11.6-14.8); White Blood Cell Count 12.9 X10^3/uL (4.5-11.0)
[2020-10-12 17:54] LABS: COVID19 -Nasal RAPID Negative (Negative)
[2020-10-12 17:57] LABS: Alanine Aminotransferase 52 IU/L (<50); Albumin 4.5 g/dL (3.5-5.0); Albumin Globulin Ratio 1.5 (1.0-2.8); Alkaline Phosphatase 83 U/L (38-126); Aspartate Aminotransferase 34 IU/L (17-59); BUN Creatinine Ratio 13.7 (6-22); Bilirubin Total 0.4 mg/dL (0.2-1.3); Blood Urea Nitrogen 14 mg/dL (9-20); Calcium 10.1 mg/dL (8.4-10.2); Carbon Dioxide 23 mmol/L (22-32); Chloride 106 mmol/L (98-107); Creatine Kinase 132 U/L (55-170); Estimated Glomerular Filt Rate > 60.0 mL/min (>60); Globulin 3.1 g/dL (1.7-4.1); Glucose 97 mg/dL (70-100); HEMOLYSIS < 15 (0-50); Lipase 69 U/L (23-300); Sodium 138 mmol/L (137-145); Total Protein 7.6 g/dL (6.3-8.2)
[2020-10-12 18:09] LABS: Troponin I < 0.012 ng/mL (0.01-0.034)
[2020-10-12 18:12] LABS: CKMB % Relative Index 0.3 % (1.5-5.0); Creatine Kinase MB 0.36 ng/mL (<2.37)
[2020-10-12] MEDS: NITROGLYCERIN 0.4 MG SL TAB SL ×3 (18:45→18:57)
[2020-10-12] MEDS: METOPROLOL IR 25 MG TABLET 50 MG PO (19:03)
[2020-10-12 20:50] LABS: D Dimer < 200 ng/mL (<230)
== END 2020-10-12 21:22 | disposition home or self-care (01) ==
PROVIDERS: Emergency Medicine; Emergency Provider Emergency Medicine
DX: R00.2 Palpitations (principal); I10 Essential (primary) hypertension; R07.9 Chest pain, unspecified; Z20.822 Contact with and (suspected) exposure to COVID-19
CPT/HCPCS: 36415; 71045; 80053; 82550; 82553; 83690; 84484; 85025; 85379; 87635; 93005; 99284; C9803